=== PATIENT | female | born 1995 | race Caucasian/White ===

== ENCOUNTER 2017-08-13 07:34 | Emergency (ER) | payer OTHER ==
[~2017-08-13] VITALS: Ht 162.6 cm; Wt 81.5 kg
[~2017-08-13 07:34] MED LIST: PRENAT PO
[2017-08-13 07:38] VITALS: Ht 162.6 cm; Wt 81.5 kg
[2017-08-13] MEDS ORDERED: IBUPROFEN 800 MG TAB PO ONE (08:00)
--- NOTE | 2017-08-13 08:05 | ERD ---
ER Documentation Chief Complaint Chief Complaint FEVER, BODY ACHE , COUGH , ST X 2 DAYS HPI Is a 22-year-old male who presents emergency department today complaining of fever, body aches, cough, sore throat and earaches and itchy eyes for the past 2 days. Patient states that yesterday she took Tylenol. Denies any sick contacts, vomiting, diarrhea. ROS All systems reviewed and are negative except as per history of present illness. Medications Home Meds Active Scripts Cetirizine Hcl* (Zyrtec*) 10 Mg Capsule, 10 MG PO DAILY, #14 TAB.CHEW Prov:MAGDALENA PETER PA-C 08/13/17 Fluticasone Propionate (Flonase Allergy Relief) 9.9 Ml [place].susp, 2 SPRAY NASAL DAILY, #1 BOTTLE TO EACH NOSTRIL Prov:MAGDALENA PETER PA-C 08/13/17 Guaifenesin-Dextromethorphan* (Robitussin* DM) 100MG/10MG/5ML Syrup, 10 ML PO Q6H Y for COUGH for 5 Days, ML Prov:MAGDALENA PETER PA-C 08/13/17 Acetaminophen* (Tylophen*) 500 Mg Capsule, 1 CAP PO Q6H Y for PAIN AND OR ELEVATED TEMP, #30 CAP Prov:MAGDALENA PETER PA-C 08/13/17 Ibuprofen* (Motrin*) 600 Mg Tab, 600 MG PO Q6, #30 TAB Prov:MAGDALENA PETER PA-C 08/13/17 Reported Medications Multivit/Min/Fol Ac/Iron/Pren* ( S*) 1 Tab Tab, 1 TAB PO DAILY, TAB 07/08/16 [none] Unknown Strength No Conflict Check 12/03/15 Allergies Allergies: Coded Allergies: No Known Allergy (Verified , 07/08/16) PMhx/Soc Hx Alcohol Use: No Hx Substance Use: No Hx Tobacco Use: No Physical Exam Vitals Physical Exam Const: NAD Head: Atraumatic Eyes: Normal Conjunctiva ENT: Ears TMs normal. Nose no drainage. Throat erythema no exudate no vesicles Neck: Full range of motion..~ No meningismus. Resp: Clear to auscultation bilaterally Cardio: Regular rate and rhythm, no murmurs Abd: Soft, non tender, non distended. Normal bowel sounds Skin: No petechiae or rashes Back: No midline or flank tenderness Ext: No cyanosis, or edema Neur: Awake and alert Psych: Normal Mood and Affect Results 24 hrs Current Medications Medications (Trade) Dose Ordered Sig/Dashawn Route PRN Reason Start Time Stop Time Status Last Admin Dose Admin Ibuprofen (Motrin) 800 mg ONCE ONCE PO 08/13/17 08:00 08/13/17 08:01 DC 08/13/17 08:09 RUN DATE: 08/13/17 [facility] PAGE 1 RUN TIME: [id number] [place] [address] Dex Francisco M.D. Hotel Staff Member SPENCER#: [id number] Name: BRETT ESQUIVEL Age/Sex: 22/F Attend Dr: ROSELINE POE Acct: [id number] MR# : [id number] : 1995 Location: [facility] Admit: 08/13/17 Specimen: [id number] Status: Complete Alma Rosa: 08/13/17 Rcvd: 08/13 Source: BONNIE Lares Descrip: Procedure Result Microbiology INFLUENZA A & B BY EIA Final INFLU A&B BY EIA INFLUENZA A NEGATIVE (Ref Range Neg) INFLUENZA B NEGATIVE (Ref Range Neg) ................................................................................ ............ Flags: Critical Hi = *H Critical Lo = *L Microbiology Abnormal = * Abnormal Hi = H Abnormal Lo = L Blood Bank Abnormal = * Susceptability Flags: S = Sensitive R = Resistant I = Intermediate END OF REPORT RUN DATE: 08/13/17 [facility] PAGE 1 RUN TIME: [id number] [place] [address] Dex Francisco M.D. Hotel Staff Member SPENCER#: [id number] Name: BRETT ESQUIVEL Age/Sex: 22/F Attend Dr: ROSELINE POE Acct: [id number] MR# : [id number] : 1995 Location: [facility] Admit: 08/13/17 Specimen: [id number] Status: Complete Al[place] Rosa: 08/13/17 Rcvd: 08/13 Source: THROAT Sp Descrip: Procedure Result Microbiology RAPID STREP ANTIGEN BY EIA Final RAPID STREP ANTIGEN ,EIA NEGATIVE (Ref Range Neg) ................................................................................ ............ Flags: Critical Hi = *H Critical Lo = *L Microbiology Abnormal = * Abnormal Hi = H Abnormal Lo = L Blood Bank Abnormal = * Susceptability Flags: S = Sensitive R = Resistant I = Intermediate END OF REPORT Procedures/MDM This is a 22-year-old female who presents emergency department today complaining of influenza-like symptoms. Patient is afebrile here in the emergency department. Her oxygen saturation is 100%. Patient was complaining of a cough however do not feel she requires a chest x-ray at this time. Low suspicion for pneumonia, PE, abscess, pleural effusion, pneumothorax. I did obtain an influenza and strep swab Influenza A and B is negative Strep a antigen is negative Patient symptoms at this time is consistent with influenza-like symptoms. I have low suspicion for strep pharyngitis, peritonsillar abscess, retropharyngeal abscess, otitis media, PNA, sinusitis, abscess, meningitis, sepsis, or other acute infectious bacterial process. Patient was given Motrin here in the emergency department. She will be given a prescription for Tylenol, Motrin, Zyrtec, Flonase and Robitussin. At this time the patient is stable for discharge and outpatient management. They should follow up with their PCP in the next 1-2. They may return to the emergency department sooner if symptoms persist or worsen. Patient understood and agreed with the plan. Departure Diagnosis: Primary Impression: Influenza-like symptoms Condition: MAGDALENA Wilkinson PA-C Aug 13, 2017 08:05 Diagnosis: Primary Impression: Influenza-like symptoms Condition: Fair MAGDALENA PETER PA-C Aug 13, 2017 08:05
[2017-08-13] MEDS ORDERED: IBUP-1542 PO (09:29)
[2017-08-13] MEDS ORDERED: FLUT9.9S NASAL (09:30)
[2017-08-13] MEDS ORDERED: UDROBDM PO (09:30)
[2017-08-13] MEDS ORDERED: ACET500C5 PO (09:30)
[2017-08-13] MEDS ORDERED: CETI10CA PO (09:31)
[2017-08-13 09:43] VITALS: BP 113/69; PULSE 64; RESP 18; TEMP 98
== END 2017-08-13 09:47 | disposition home or self-care (01) ==
LOC: FTE 07:34
DX: H92.03 Otalgia, bilateral (principal); R05 Cough; J02.9 Acute pharyngitis, unspecified
CPT/HCPCS: 87400; 87880; Z7502; Z7610; 99283

== ENCOUNTER 2019-04-28 21:46 | Emergency (ER) | payer OTHER ==
[~2019-04-28] VITALS: Ht 160 cm; Wt 81.9 kg
[~2019-04-28 21:46] MED LIST changes: +ACET500C5 PO; +CETI10CA PO; +FLUT9.9S NASAL; +GUAI5SYR2 PO; +IBUP-1542 PO
[2019-04-28 21:59] VITALS: BP 130/68; PULSE 78; RESP 18; Ht 160 cm; Wt 81.9 kg
--- NOTE | 2019-04-28 23:15 | ERD ---
ER Documentation Chief Complaint Chief Complaint umbilical pain x 1 day. states 7 weeks , denies vb HPI The patient is a 23-year-old female, presenting to the ER because of umbilical pain for the last 3 days, worse tonight, worse with movement, denies fever/chill, denies similar symptoms previously, denies chest pain, dyspnea, vomiting, dysuria, vaginal bleeding. She is 3 para 2, does not smoke nor drink Past medical/surgical history: None ROS All systems reviewed and are negative except as per history of present illness. Medications Home Meds Active Scripts Acetaminophen* (Tylenol*) 325 Mg Tablet, 2 TAB PO Q6 PRN for PAIN AND OR ELEVATED TEMP, #20 TAB Prov:GAURAV JENKINS MD 04/29/19 Cetirizine Hcl* (Zyrtec*) 10 Mg Capsule, 10 MG PO DAILY, #14 TAB.CHEW Prov:MAGDALENA PETER PA-C 08/13/17 Fluticasone Propionate (Flonase Allergy Relief) 9.9 Ml [place].susp, 2 SPRAY NASAL DAILY, #1 BOTTLE TO EACH NOSTRIL Prov:MAGDALENA PETER PA-C 08/13/17 Guaifenesin-Dextromethorphan* (Robitussin* DM) 100MG/10MG/5ML Syrup, 10 ML PO Q6H PRN for COUGH for 5 Days, ML Prov:MAGDALENA PETER PA-C 08/13/17 Acetaminophen* (Tylophen*) 500 Mg Capsule, 1 CAP PO Q6H PRN for PAIN AND OR ELEVATED TEMP, #30 CAP Prov:MAGDALENA PETER PA-C 08/13/17 Ibuprofen* (Motrin*) 600 Mg Tab, 600 MG PO Q6, #30 TAB Prov:MAGDALENA PETER PA-C 08/13/17 Reported Medications Multivit/Min/Fol Ac/Iron/Pren* ( S*) 1 Tab Tab, 1 TAB PO DAILY, TAB 07/08/16 [none] Unknown Strength No Conflict Check 12/03/15 Allergies Allergies: Coded Allergies: No Known Allergy (Verified , 07/08/16) PMhx/Soc Medical and Surgical Hx: pt denies Medical Hx, pt denies Surgical Hx Hx Alcohol Use: No Hx Substance Use: No Hx Tobacco Use: No Smoking Status: Never smoker Physical Exam Vitals Vital Signs Date Temp Pulse Resp B/P (MAP) Pulse Ox O2 O2 Flow FiO2 Time Delivery Rate 04/28/19 97.5 78 18 130/68 100 21:59 (88) Physical Exam Const: No acute distress. Head: Atraumatic. Eyes: Normal Conjunctiva. ENT: Normal External Ears, Nose and Mouth. Neck: Full range of motion. No meningismus. Resp: Clear to auscultation bilaterally. Cardio: Regular rate and rhythm. Abd: Soft, non distended, normal bowel sounds, sensitive umbilicus but no surrounding erythema, no crepitus, no discharge, no protrusion Skin: No petechiae or rashes. Back: No midline or flank tenderness. Ext: No cyanosis, or edema. Neur: Awake and alert. No focal deficit Psych: Normal Mood and Affect. Result Diagram: 04/28/19 2325 04/28/19 2325 Results 24 hrs Laboratory Tests Test 04/28/19 23:25 04/28/19 23:30 White Blood Count 9.8 10^3/ul Red Blood Count 4.81 10^6/ul Hemoglobin 13.7 g/dl Hematocrit 43.3 % Mean Corpuscular Volume 90.0 fl Mean Corpuscular Hemoglobin 28.5 pg Mean Corpuscular Hemoglobin Concent 31.6 g/dl Red Cell Distribution Width 13.1 % Platelet Count 331 10^3/UL Mean Platelet Volume 9.3 fl Immature Granulocytes % 0.400 % Neutrophils % 67.1 % Lymphocytes % 26.7 % Monocytes % 5.1 % Eosinophils % 0.4 % Basophils % 0.3 % Nucleated Red Blood Cells % 0.0 /100WBC Immature Granulocytes # 0.040 10^3/ul Neutrophils # 6.5 10^3/ul Lymphocytes # 2.6 10^3/ul Monocytes # 0.5 10^3/ul Eosinophils # 0.0 10^3/ul Basophils # 0.0 10^3/ul Nucleated Red Blood Cells # 0.0 10^3/ul Sodium Level 140 mmol/L Potassium Level 4.1 mmol/L Chloride Level 106 mmol/L Carbon Dioxide Level 25 mmol/L Anion Gap 9 Blood Urea Nitrogen 11 mg/dl Creatinine 0.66 mg/dl Est Glomerular Filtrat Rate mL/min > 60 mL/min Glucose Level 98 mg/dl Calcium Level 9.4 mg/dl Total Bilirubin 0.3 mg/dl Direct Bilirubin 0.00 mg/dl Indirect Bilirubin 0.3 mg/dl Aspartate Amino Transf (AST/SGOT) 22 IU/L Alanine Aminotransferase (ALT/SGPT) 16 IU/L Alkaline Phosphatase 67 IU/L Total Protein 8.1 g/dl Albumin 4.4 g/dl Globulin 3.70 g/dl Albumin/Globulin Ratio 1.18 Lipase 77 U/L Bedside Urine pH (LAB) 7.5 Bedside Urine Protein (LAB) Negative Bedside Urine Glucose (UA) Negative Bedside Urine Ketones (LAB) Negative Bedside Urine Blood Trace-intact Bedside Urine Nitrite (LAB) Negative Bedside Urine Leukocyte Esterase (L Trace Current Medications Medications Dose Sig/Dashawn Start Time Status Last (Trade) Ordered Route PRN Stop Time Admin Dose Reason Admin 650 mg ONCE ONCE 04/29/19 DC 04/29/19 Acetaminophen PO 01:00 00:38 (Tylenol 04/29/19 01:00 Tab) Procedures/MDM MEDICAL MAKING DECISION: The patient is 23-year-old female, presenting with intermittent umbilical pain for the last 3 days of unclear etiology. She was treated with Tylenol 650 mg p.o. in the ER for pain with good response. I do not suspect acute abdomen, however early appendicitis can present with umbilical tenderness. The differential diagnoses considered include but are not limited to cholelithiasis, cholecystitis, choledocholithiasis, cholangitis, pancreatitis, hepatitis, gastritis, peptic ulcer disease, gastric ulcer, appendicitis, cystitis, diverticulitis, partial small bowel obstruction. Departure Diagnosis: Primary Impression: Abdominal pain Condition: Good Comments She was discharged with Tylenol and I discussed the findings with the patient. I advised the patient to return in 8 to 10 hours for reevaluation, sooner if any concern. Disclaimer: Inadvertent spelling and grammatical errors are likely due to EHR/dictation software use and do not reflect on the overall quality of patient care. Also, please note that the electronic time recorded on this note does not necessarily reflect the actual time of the patient encounter. GAURAV JENKINS MD Apr 28, 2019 23:15
[2019-04-29] MEDS ORDERED: ACET325T33 PO (00:33)
[2019-04-29] MEDS ORDERED: ACETAMINOPHEN 325 MG TAB PO ONE (01:00)
== END 2019-04-29 00:45 | disposition home or self-care (01) ==
LOC: FTE 21:46
DX: R10.33 Periumbilical pain (principal)
CPT/HCPCS: 36415; 80053; 81003; 83690; 85025; Z7502; Z7610; 99283

== ENCOUNTER → 2019-05-13 | Emergency (ER) | payer OTHER ==
[~2019-05-13] VITALS: Ht 157.5 cm; Wt 81.7 kg
[~2019-05-13] MED LIST changes: +ACET-141 PO; +ACET325T33 PO
[2019-05-13 00:23] VITALS: BP 128/57; PULSE 73; RESP 19; Ht 157.5 cm; Wt 81.7 kg
--- NOTE | 2019-05-13 04:10 | ERD ---
ER Documentation Chief Complaint Chief Complaint BIB SELF W/ C/O VB AND GENERALIZED AP SINCE 1800 HPI 23-year-old female currently about 9 weeks with history of anemia presents for vaginal bleeding and abdominal pain x1 day. Patient is A0. Vaginal bleeding noted to be mild, when through 3 pads daily. Abdominal pain is periumbilical, rated 7 out of 10, nonradiating, described as a dull sensation. She vomited once. Denies fevers or chills. Denies chest pain or shortness of breath. Denies leg pain. She had similar symptoms 2 weeks ago which resolved on its own. She states that she saw [facility] 2 weeks ago and had OB ultrasound which was normal. No other modifying factors noted, no other treatments tried at home. ROS All systems reviewed and are negative except as per history of present illness. Medications Home Meds Active Scripts Acetaminophen* (Acetaminophen*) 500 MG Extra Strength Tablet, 500 MG PO Q4H PRN for PAIN AND OR ELEVATED TEMP, #30 TAB Prov:GAURAV GARCIA DO 05/13/19 Acetaminophen* (Tylenol*) 325 Mg Tablet, 2 TAB PO Q6 PRN for PAIN AND OR ELEVATED TEMP, #20 TAB Prov:GAURAV JENKINS MD 04/29/19 Cetirizine Hcl* (Zyrtec*) 10 Mg Capsule, 10 MG PO DAILY, #14 TAB.CHEW Prov:MAGDALENA PETER PA-C 08/13/17 Fluticasone Propionate (Flonase Allergy Relief) 9.9 Ml [place].susp, 2 SPRAY NASAL DAILY, #1 BOTTLE TO EACH NOSTRIL Prov:MAGDALENA PETER PA-C 08/13/17 Guaifenesin-Dextromethorphan* (Robitussin* DM) 100MG/10MG/5ML Syrup, 10 ML PO Q6H PRN for COUGH for 5 Days, ML Prov:MAGDALENA PETER PA-C 08/13/17 Acetaminophen* (Tylophen*) 500 Mg Capsule, 1 CAP PO Q6H PRN for PAIN AND OR ELEVATED TEMP, #30 CAP Prov:MAGDALENA PETER PA-C 08/13/17 Ibuprofen* (Motrin*) 600 Mg Tab, 600 MG PO Q6, #30 TAB Prov:MAGDALENA PETER PA-C 08/13/17 Reported Medications Multivit/Min/Fol Ac/Iron/Pren* ( S*) 1 Tab Tab, 1 TAB PO DAILY, TAB 07/08/16 [none] Unknown Strength No Conflict Check 12/03/15 Allergies Allergies: Coded Allergies: No Known Allergy (Verified , 07/08/16) PMhx/Soc Medical and Surgical Hx: pt denies Medical Hx, pt denies Surgical Hx Hx Alcohol Use: No Hx Substance Use: No Hx Tobacco Use: No Smoking Status: Never smoker FmHx Family History: No coronary disease Physical Exam Vitals Vital Signs Date Temp Pulse Resp B/P (MAP) Pulse Ox O2 O2 Flow FiO2 Time Delivery Rate 05/13/19 98.9 73 19 128/57 100 00:23 (80) Physical Exam Const: No acute distress Resp: Clear to auscultation bilaterally Cardio: Regular rate and rhythm, no murmurs Abd: Soft, non distended. Normal bowel sounds, mild periumbilical tenderness to palpation, no McBurney's point tenderness, no Flores sign, no rebound or guarding noted Skin: No petechiae or rashes Back: No midline or flank tenderness Ext: No cyanosis, or edema Neur: Awake and alert Psych: Normal Mood and Affect Results 24 hrs Laboratory Tests Test 05/13/19 01:36 White Blood Count 12.4 10^3/ul Red Blood Count 4.48 10^6/ul Hemoglobin 13.0 g/dl Hematocrit 40.3 % Mean Corpuscular Volume 90.0 fl Mean Corpuscular Hemoglobin 29.0 pg Mean Corpuscular Hemoglobin Concent 32.3 g/dl Red Cell Distribution Width 13.0 % Platelet Count 325 10^3/UL Mean Platelet Volume 9.3 fl Immature Granulocytes % 0.300 % Neutrophils % 68.0 % Lymphocytes % 25.5 % Monocytes % 5.7 % Eosinophils % 0.3 % Basophils % 0.2 % Nucleated Red Blood Cells % 0.0 /100WBC Immature Granulocytes # 0.040 10^3/ul Neutrophils # 8.4 10^3/ul Lymphocytes # 3.2 10^3/ul Monocytes # 0.7 10^3/ul Eosinophils # 0.0 10^3/ul Basophils # 0.0 10^3/ul Nucleated Red Blood Cells # 0.0 10^3/ul Urine Color YELLOW Urine Clarity CLOUDY Urine pH 6.0 Urine Specific [place] 1.027 Urine Ketones NEGATIVE mg/dL Urine Nitrite NEGATIVE mg/dL Urine Bilirubin NEGATIVE mg/dL Urine Urobilinogen NEGATIVE mg/dL Urine Leukocyte Esterase 1+ Paul/ul Urine Microscopic RBC 4 /HPF Urine Microscopic WBC 7 /HPF Urine Squamous Epithelial Cells MODERATE /HPF Urine Amorphous Crystals FEW /HPF Urine Bacteria FEW /HPF Urine Mucus FEW /HPF Urine Hemoglobin NEGATIVE mg/dL Urine Glucose NEGATIVE mg/dL Urine Total Protein NEGATIVE mg/dl Beta HCG, Quantitative 87718.0 mIU/ml Procedures/MDM Medical Decision Making: Differential diagnosis includes but not limited to spontaneous , ovarian cyst, uterine fibroid, ectopic . Patient appeared well on physical examination. CBC showed no anemia, WBC mildly elevated at 12.4 UA did indicate infection [place] [address] Pelvic ultrasound showed single live intrauterine about 9 weeks gestat ion, heart rate was 68 Patient advised to return to the ER in 48 hours for repeat labs if symptoms continue. Advised to follow with [facility]. Patient advised to follow up with PCP in 1-2 days. Patient advised to return to ED for new or worsening symptoms. Patient stable on discharge from the ED. Disclaimer: Inadvertent spelling and grammatical errors are likely due to EHR /dictation software use and do not reflect on the overall quality of patient care. Also, please note that the electronic time recorded on this note does not necessarily reflect the actual time of the patient encounter. Departure Diagnosis: Primary Impression: Vaginal bleeding in Additional Impressions: Vaginal bleeding Vaginal bleeding in patient at less than 20 weeks ges... Condition: Fair Patient Instructions: Vaginal Bleed in Additional Instructions: Call your primary care doctor TOMORROW for an appointment during the next 1-2 days.See the doctor sooner or return here if your condition worsens before your appointment time. Follow up with energy systems laboratory director return to ER in 2 days for repeat beta HCG GAURAV GARCIA DO May 13, 2019 04:10
== END | disposition home or self-care (01) ==
LOC: FTE 00:06
DX: O20.9 Hemorrhage in early pregnancy, unspecified (principal); R10.2 Pelvic and perineal pain; Z3A.09 9 weeks gestation of pregnancy
CPT/HCPCS: 36415; 76801; 81001; 84702; 85025; Z7502